=== PATIENT | female | born 1950 | race Caucasian/White ===

== ENCOUNTER 2019-01-23 13:31 | Emergency (ER) | payer MEDICARE ==
[~2019-01-23] VITALS: Ht 162.6 cm; Wt 56.7 kg
--- NOTE | 2019-01-23 15:07 | NUR ---
pt was evaluated by dr Peacock. pt was d/c'D to home after er md evaluation. d/c instructions given to the pt by dr peacock. gait is stable, no s/s of distress at this time.
[2019-01-23 15:11] VITALS: BP 128/78
== END 2019-01-23 15:12 | disposition home or self-care (01) ==
LOC: ER 13:32
DX: G40.909 Epilepsy, unspecified, not intractable, without status epilepticus (principal)
CPT/HCPCS: 70450; A4663